=== PATIENT | female | born 1975 | race Caucasian/White ===

== ENCOUNTER 2018-05-04 19:07 | Observation (INO) | payer MEDICAID ==
[2018-05-04 19:08] VITALS: BMI 26.4
[2018-05-04 19:46] LABS: HEMOGLOBIN 12.6 g/dL (12.0-16.0); MEAN CELL VOLUME 80.6 fl (80.0-105.0); MEAN CORPUSCULAR HEMOGLOBIN 26.9 pg (25.0-35.0); MEAN CORPUSCULAR HGB CONC 33.4 g/dl (31.0-37.0); MEAN PLATELET VOLUME 10.1 fl (7.0-11.0); RBC 4.68 10^6/uL (3.5-6.1); RED CELL DISTRIBUTION WIDTH 14.1 % (11.5-14.5); WHITE BLOOD COUNT 8.4 10^3/uL (4.5-11.0)
[2018-05-04 19:55] LABS: ALB/GLOB RATIO 1.3 (1.1-1.8); ALBUMIN 4.4 g/dL (3.0-4.8); ALT/SGPT 38 U/L (7-56); AST/SGOT 38 U/L (14-36); BLOOD UREA NITROGEN 13 mg/dL (7-21); CALCIUM 9.6 mg/dL (8.4-10.5); GFR NON-AFRICAN AMERICAN > 60
[2018-05-04 20:01] LABS: INR 0.94; PROTHROMBIN TIME 10.7 SECONDS (9.4-12.5)
[2018-05-04 20:07] LABS: TROPONIN I < 0.01 ng/mL
--- NOTE | 2018-05-04 20:46 | ED PDOC ---
Arrival/HPI - General Chief Complaint: Palpitations Time Seen by Provider: 05/04/18 19:26 Historian: Patient - History of Present Illness Narrative History of Present Illness (Text): 05/04/18 19:25 Indy Bennett is a 42 year old female, whose past medical history includes rheumatism and Mediterranean fever, who presents to the Emergency department complaining of intermittent left-sided chest discomfort radiating to left shoul felice and arm for the past couple of days. Patient has a history of tobacco abuse and family history of cardiac disease. Patient also complaining of occasional palpitations. Patient denies any fever, chills, cough, shortness of breath, nausea, vomiting, headache, dizziness, or any other complaints. Symptom Onset: Gradual Symptom Course: Unchanged Activities at Onset: Light Context: Home Past Medical History - Provider Review Nursing Documentation Reviewed: Yes - Tetanus Immunization Tetanus Immunization: Unknown - Past Medical History Past Medical History: No Previous - Cardiac Hx Cardiac Disorders: No - Pulmonary Hx Respiratory Disorders: No - Neurological Hx Neurological Disorder: No - HEENT Hx HEENT Disorder: Yes Other/Comment: DNS SINUS CONGESTION, CHRONIC SINUS INFECTION - Renal Hx Renal Disorder: Yes - Endocrine/Metabolic Hx Endocrine Disorders: No - Hematological/Oncological Hx Blood Disorders: Yes Other/Comment: MEDITERRANEAN FEVER TAKES COLCHICINE - Integumentary Hx Dermatological Disorder: No - Musculoskeletal/Rheumatological Hx Musculoskeletal Disorders: No Hx Falls: No - Gastrointestinal Hx Diverticulitis: Yes (02/12/16) - Genitourinary/Gynecological Hx Genitourinary Disorders: Yes Hx Urinary Tract Infection: Yes (CHRONIC) - Psychiatric Hx Anxiety: Yes Hx Substance Use: No - Surgical History Hx Appendectomy: Yes Hx Cholecystectomy: Yes Hx Tonsillectomy: Yes - Anesthesia Hx Anesthesia: Yes Hx Anesthesia Reactions: No Hx Malignant Hyperthermia: No - Suicidal Assessment Feels Threatened In Home Enviroment: No Family/Social History - Physician Review Nursing Documentation Reviewed: Yes Family/Social History: Unknown Family HX Smoking Status: Never Smoked Hx Alcohol Use: No Hx Substance Use: No Hx Substance Use Treatment: No Allergies/Home Meds Allergies/Adverse Reactions: Allergies cortisone Allergy (Verified 05/04/18 19:14) SWELLING Home Medications: Home Meds Medication Instructions Recorded Confirmed Colchicine [Colcrys] 0.6 mg PO DAILY 11/09/15 05/04/18 Review of Systems - Physician Review All systems were reviewed & negative as marked: Yes - Review of Systems Constitutional: Normal. absent: Fevers Eyes: Normal ENT: Normal Respiratory: Normal. absent: SOB, Cough Cardiovascular: Chest Pain, Palpitations Gastrointestinal: Normal. absent: Abdominal Pain, Diarrhea, Nausea, Vomiting Genitourinary Female: Normal. absent: Dysuria, Frequency, Hematuria, Urine Output Changes Musculoskeletal: Normal. absent: Back Pain, Neck Pain Skin: Normal. absent: Rash Neurological: Normal. absent: Headache, Dizziness Endocrine: Normal Hemo/Lymphatic: Normal Psychiatric: Normal Physical Exam Vital Signs Reviewed: Yes Vital Signs Temp Pulse Resp BP Pulse Ox 05/04/18 19:22 98.7 F 109 H 18 120/77 98 Temperature: Afebrile Blood Pressure: Normal Pulse: Regular Respiratory Rate: Normal Appearance: Positive for: Well-Appearing, Non-Toxic, Comfortable Pain Distress: None Mental Status: Positive for: Alert and Oriented X 3 - Systems Exam Head: Present: Atraumatic, Normocephalic Pupils: Present: PERRL Extroacular Muscles: Present: EOMI Conjunctiva: Present: Normal Mouth: Present: Moist Mucous Membranes Neck: Present: Normal Range of Motion Respiratory/Chest: Present: Clear to Auscultation, Good Air Exchange. No: Respiratory Distress, Accessory Muscle Use Cardiovascular: Present: Regular Rate and Rhythm, Normal S1, S2. No: Murmurs Abdomen: No: Tenderness, Distention, Peritoneal Signs Back: Present: Normal Inspection Upper Extremity: Present: Normal Inspection. No: Cyanosis, Edema Lower Extremity: Present: Normal Inspection. No: Edema Neurological: Present: GCS=15, CN II-XII Intact, Speech Normal Skin: Present: Warm, Dry, Normal Color. No: Rashes Psychiatric: Present: Alert, Oriented x 3, Normal Insight, Normal Concentration Medical Decision Making ED Course and Treatment: 05/04/18 19:25 Impression: 42 year old female complaining of left-sided chest discomfort radiating to left arm and occasional palpitations. Plan: -- EKG -- Chest X-ray -- Labs, cardiac enzymes, D-dimer -- Reassess and disposition Prior Visits: Notes and results from previous visits were reviewed. Progress Notes: Reviewed EKG, sinus tachycardia at [address]-segment elevations or depressions, no T-wave inversions, normal intervals. 05/04/18 21:05 Chest X-ray reviewed, shows no acute processes. 05/04/18 23:46 Case discussed with claim review medical director weapons engineer, who is aware and agrees with plan. Case discussed with Dr. Walton, who is aware and agrees with plan. Accepts pt in to hospitalist service. Pt will go to remote telemetry observation for chest pain. - Lab Interpretations Lab Results: PT 10.7 SECONDS (9.4-12.5) 05/04/18 19:40 INR 0.94 05/04/18 19:40 APTT 27.0 Seconds (25.1-36.5) 05/04/18 19:40 Troponin I < 0.01 ng/mL 05/04/18 19:40 Total Bilirubin 0.3 mg/dL (0.2-1.3) 05/04/18 19:40 AST 38 U/L (14-36) H 05/04/18 19:40 ALT 38 U/L (7-56) 05/04/18 19:40 Alkaline Phosphatase 60 U/L (38-126) 05/04/18 19:40 Total Protein 7.8 g/dL (5.8-8.3) 05/04/18 19:40 Albumin 4.4 g/dL (3.0-4.8) 05/04/18 19:40 Globulin 3.4 gm/dL 05/04/18 19:40 Albumin/Globulin Ratio 1.3 (1.1-1.8) 05/04/18 19:40 I have reviewed the lab results: Yes - RAD Interpretation Radiology Orders: 05/04/18 19:28 CHEST PORTABLE [RAD] Stat Audio Tape Librarian: ED Physician - EKG Interpretation Interpreted by ED Physician: Yes Type: 12 lead EKG - Scribe Statement The provider has reviewed the documentation as recorded by the Blu Scott Provider Scribe Attestation: All medical record entries made by the Scribe were at my direction and personally dictated by me. I have reviewed the chart and agree that the record accurately reflects my personal performance of the history, physical exam, medical decision making, and the department course for this patient. I have also personally directed, reviewed, and agree with the discharge instructions and disposition. Disposition/Present on Arrival - Present on Arrival Any Indicators Present on Arrival: No History of DVT/PE: No History of Uncontrolled Diabetes: No Urinary Catheter: No History of Decub. Ulcer: No History Surgical Site Infection Following: None - Disposition Have Diagnosis and Disposition been Completed?: Yes Diagnosis: Chest pain Disposition: HOSPITALIZED Disposition Time: 22:15 Patient Problems: Current Active Problems Problem Status Onset Chest pain Acute Condition: STABLE
[2018-05-04] MEDS ORDERED: Morphine 2 mg/ml ISec IVP STA (21:57)
[2018-05-05 00:24] VITALS: RESP 20
[2018-05-05] MEDS ORDERED: Influenza Vaccine 60 mcg/0.5 mL SYR (4YR UP) IM ONE (00:24)
[2018-05-05] MEDS ORDERED: Pneumococcal 23-Valent Vaccine IM ONE (00:24)
--- NOTE | 2018-05-05 01:25 | CP.PCM.HP ---
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 Patient reports she has stubsternal chest pain which she describes as pressure like in nature; on going for the past week occurring at rest and at exertion. She reports pain radiates into her L arm and L jaw; and denies any prior episodes in the past. Patient states her episodes begin w/ onset of palpitations and racing heart and are subsequently followed by this pressure like chest pain. Patient also reports that during exertion she has mild episodes of light headedness which relieve once the patient is at rest. She also reports some shortness of breath associated w/ episodes of chest pain as well. Upon ROS: Denies Abd pain, N/V/D/C, Urinary complaints, fever, chills, numbness/tingling, focal weakness. Remainder of 12 system ROS is otherwise negative. PMD: Alessia PMH: Mediterranean Fever Home Rx: Colchicine 0.6 BID; SubQ biologic (Q21 days) Pharmacy: [facility] PSH: Carin, Appy, Csection, Tonsillectomy, unknown ear surgery Fam: Mother - Elevated Thyroid; Father - DM, HTN, CAD Social: Denies EtOH, Smokes Hookah on/off, Denies Illicit Drugs Present on Admission - Present on Admission Any Indicators Present on Admission: No Past Patient History - Tetanus Immunizations Tetanus Immunization: Unknown - Past Medical History & Family History Past Medical History?: Yes - Past Social History Smoking Status: Never Smoked - CARDIAC Hx Cardiac Disorders: No - PULMONARY Hx Respiratory Disorders: No - NEUROLOGICAL Hx Neurological Disorder: No - HEENT Hx HEENT Problems: Yes Other/Comment: DNS SINUS CONGESTION, CHRONIC SINUS INFECTION - RENAL Hx Chronic Kidney Disease: Yes - ENDOCRINE/METABOLIC Hx Endocrine Disorders: No - HEMATOLOGICAL/ONCOLOGICAL Hx Blood Disorders: Yes Other/Comment: MEDITERRANEAN FEVER TAKES COLCHICINE - INTEGUMENTARY Hx Dermatological Problems: No - MUSCULOSKELETAL/RHEUMATOLOGICAL Hx Musculoskeletal Disorders: No Hx Falls: No - GASTROINTESTINAL Hx Diverticulitis: Yes (02/12/16) - GENITOURINARY/GYNECOLOGICAL Hx Genitourinary Disorders: Yes Hx Urinary Tract Infection: Yes (CHRONIC) - PSYCHIATRIC Hx Anxiety: Yes Hx Substance Use: No - SURGICAL HISTORY Hx Appendectomy: Yes Hx Cholecystectomy: Yes Hx Tonsillectomy: Yes - ANESTHESIA Hx Anesthesia: Yes Hx Anesthesia Reactions: No Hx Malignant Hyperthermia: No Meds Allergies/Adverse Reactions: Allergies Allergy/AdvReac Type Severity Reaction Status Date / Time cortisone Allergy SWELLING Verified 05/04/18 19:14 Physical Exam - Constitutional Appears: Well, Non-toxic, No Acute Distress - Head Exam Head Exam: ATRAUMATIC, NORMOCEPHALIC - Eye Exam Eye Exam: EOMI, Normal appearance, PERRL. absent: Scleral icterus - ENT Exam ENT Exam: Mucous Membranes Moist - Respiratory Exam Respiratory Exam: Chest Wall Tenderness (Mild reproducibly at left lower sternal border ), Clear to Auscultation Bilateral, NORMAL BREATHING PATTERN - Cardiovascular Exam Cardiovascular Exam: REGULAR RHYTHM, RRR, +S1, +S2. absent: Systolic Murmur - GI/Abdominal Exam GI & Abdominal Exam: Normal Bowel Sounds, Soft. absent: Tenderness - Extremities Exam Extremities exam: Positive for: pedal pulses present. Negative for: pedal edema - Neurological Exam Neurological exam: Alert, CN II-XII Intact - Psychiatric Exam Psychiatric exam: Normal Affect, Normal Mood - Skin Skin Exam: Dry, Intact, Normal Color, Warm Results - Vital Signs Recent Vital Signs: Last Vital Signs Temp 98.7 F 05/04/18 19:22 Pulse 74 05/04/18 23:12 Resp 20 05/04/18 23:12 BP 121/82 05/04/18 22:59 Pulse Ox 98 05/04/18 22:59 - Labs Result Diagrams: 05/05/18 03:35 05/05/18 03:35 Labs: Laboratory Results - last 24 hr 05/04/18 05/04/18 05/04/18 19:40 19:40 19:40 WBC 8.4 RBC 4.68 Hgb 12.6 Hct 37.7 MCV 80.6 MCH 26.9 MCHC 33.4 RDW 14.1 Plt Count 225 MPV 10.1 PT 10.7 INR 0.94 APTT 27.0 D-Dimer, Quantitative Sodium 139 Potassium 4.0 Chloride 102 Carbon Dioxide 28 Anion Gap 14 BUN 13 Creatinine 0.5 L Est GFR ( Amer) > 60 Est GFR (Non-Af Amer) > 60 Random Glucose 103 Calcium 9.6 Total Bilirubin 0.3 AST 38 H ALT 38 Alkaline Phosphatase 60 Lactate Dehydrogenase 454 Total Creatine Kinase 49 Troponin I < 0.01 Total Protein 7.8 Albumin 4.4 Globulin 3.4 Albumin/Globulin Ratio 1.3 05/04/18 19:40 WBC RBC Hgb Hct MCV MCH MCHC RDW Plt Count MPV PT INR APTT D-Dimer, Quantitative 339 H Sodium Potassium Chloride Carbon Dioxide Anion Gap BUN Creatinine Est GFR ( Amer) Est GFR (Non-Af Amer) Random Glucose Calcium Total Bilirubin AST ALT Alkaline Phosphatase Lactate Dehydrogenase Total Creatine Kinase Troponin I Total Protein Albumin Globulin Albumin/Globulin Ratio Assessment & Plan - Assessment and Plan (Free Text) Assessment: 42F w/ a PMH of Mediterranean Fever, [place] [facility] [place] w/ c/o Palpitations and Chest Pain. PLAN: Chest Pain ; Palpitations - ACS R/O ASA Loaded in ED EKG showed no ischemic changes First two trops negative Third Troponin pending C/w ASA 81 QD Lipid Panel Pending A1C pending TSH mildly elevated D-Dimer mildly elevated (340); 05/04 - CTA PE negative for PE ; Mild pulmonary venous congestion (poss mild CHF?); Bilateral hilar adenopathy - poss reactive Follow up ECHO Cardiology consulted, appreciate reccs Hx Familial Mediterranean Fever C/w Home Colocrys 0.6 BID PPX Lovenox Pepcid 20 BID Patient was seen, examined, and discussed w/ attending Dr. 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
[2018-05-05 04:04] LABS: ALB/GLOB RATIO 1.4 (1.1-1.8); ALBUMIN 4.2 g/dL (3.0-4.8); ALT/SGPT 41 U/L (7-56); AST/SGOT 34 U/L (14-36); BLOOD UREA NITROGEN 15 mg/dL (7-21); CALCIUM 9.2 mg/dL (8.4-10.5); GFR NON-AFRICAN AMERICAN > 60; HDL CHOLESTEROL 44 mg/dL (29-60)
[2018-05-05 04:14] LABS: LDL CHOLESTEROL 123 mg/dL (0-129)
[2018-05-05 04:15] LABS: TROPONIN I < 0.01 ng/mL
[2018-05-05 04:34] LABS: BASO # 0.02 K/mm3 (0.0-2.0); BASO % 0.2 % (0.0-3.0); EOS # 0.1 (0.0-0.7); EOS % 1.6 % (1.5-5.0); GRAN # 5.85 (1.4-6.5); GRAN % 70.3 % (50.0-68.0); HEMOGLOBIN 12.1 g/dL (12.0-16.0); LYMPH # 1.8 (1.2-3.4); LYMPH % 21.8 % (22.0-35.0); MEAN CELL VOLUME 80.7 fl (80.0-105.0); MEAN CORPUSCULAR HEMOGLOBIN 26.5 pg (25.0-35.0); MEAN CORPUSCULAR HGB CONC 32.8 g/dl (31.0-37.0); MEAN PLATELET VOLUME 10.2 fl (7.0-11.0); MONO # 0.5 (0.1-0.6); MONO % 6.1 % (1.0-6.0); RBC 4.57 10^6/uL (3.5-6.1); RED CELL DISTRIBUTION WIDTH 14.1 % (11.5-14.5); WHITE BLOOD COUNT 8.3 10^3/uL (4.5-11.0)
--- NOTE | 2018-05-05 07:35 | RAD ---
Date of service: 05/04/2018 HISTORY: palpitations COMPARISON: Portable chest 11/09/2015. FINDINGS: LUNGS: No active pulmonary disease. PLEURA: No significant pleural effusion identified, no pneumothorax apparent. CARDIOVASCULAR: No aortic atherosclerotic calcification present. Normal cardiac size. No pulmonary vascular congestion. OSSEOUS STRUCTURES: No significant abnormalities. VISUALIZED UPPER ABDOMEN: Normal. OTHER FINDINGS: None. IMPRESSION: No interval acute cardiopulmonary disease appreciated.
--- NOTE | 2018-05-05 08:59 | CT ---
Date of service: 05/04/2018 PROCEDURE: CT Chest with contrast (Pulmonary Angiogram) HISTORY: sob COMPARISON: Contrast enhanced chest CT 10/01/2015. TECHNIQUE: Axial computed tomography images were obtained of the chest in the pulmonary arterial phase of enhancement. Coronal and sagittal reformatted images were created and reviewed. Intravenous contrast dose: Omnipaque 350, 149 cc Radiation dose: Total exam DLP = 495.52 mGy-cm. This CT exam was performed using one or more of the following dose reduction techniques: Automated exposure control, adjustment of the mA and/or kV according to patient size, and/or use of iterative reconstruction technique. FINDINGS: PULMONARY ARTERIES: Unremarkable. No pulmonary embolism. AORTA: No acute findings. No thoracic aortic aneurysm. No aortic atherosclerotic calcification or mural plaque present. LUNGS: Unremarkable. No nodule, mass or pulmonary consolidation. PLEURAL SPACES: Unremarkable. No effusion or pneumothorax. HEART: Unremarkable. No cardiomegaly. No significant pericardial effusion. LYMPH NODES: No lymphadenopathy. BONES, CHEST WALL: Unremarkable. No fracture or destructive lesion OTHER FINDINGS: Tiny cyst midpole right kidney incidentally noted. IMPRESSION: Unremarkable CT pulmonary angiogram. No pulmonary embolus. No infiltrate, pleural effusion, pneumothorax or significant lymphadenopathy. No discrete pulmonary mass identified. No significant interval change. Preliminary report provided by Apryl, 05/04/1910 23 p.m..
[2018-05-05] MEDS: Enoxaparin 40 mg Syringe SC SCH (09:47)
--- NOTE | 2018-05-05 14:10 | US ---
HISTORY: Leg pain and swelling. Evaluate for DVT PHYSICIAN(S): Reymundo Hdz MD. TECHNIQUE: Duplex sonography and color-flow Doppler with graded compression were used to evaluate the deep venous systems of both lower extremities. FINDINGS: The visualized deep venous systems of both lower extremities are sonographically normal and compressible. Normal wave forms and augmentation are seen. There is no sonographic evidence for deep venous thrombosis in the visualized segments of both lower extremities. IMPRESSION: No sonographic evidence for deep venous thrombosis in the visualized segments of both lower extremities.
--- NOTE | 2018-05-05 14:45 | CARD ---
APPROVED REPORT Date of service: 05/05/2018 EXAM: Two-dimensional and M-mode echocardiogram with Doppler and color Doppler. INDICATION Chest Pain Palpitations 2D DIMENSIONS Left Atrium (2D)3.2 (1.6-4.0cm)IVSd1.0 (0.7-1.1cm) LVDd3.7 (3.9-5.9cm)PWd1.0 (0.7-1.1cm) LVDs2.6 (2.5-4.0cm)FS (%) 30.5 % LVEF (%)58.9 (>50%) M-Mode DIMENSIONS Aortic Root2.00 (2.2-3.7cm)Aortic Cusp Exc.1.40 (1.5-2.0cm) Aortic Valve AoV Peak Imdkrubf589.0cm/Esther Peak GR.7mmHg Mitral Valve E/A ratio0.0 TDI E/Lateral E'0.0E/Medial E'0.0 Tricuspid Valve TR Peak [id number]/sRAP [id number] Peak Gr.14mmHg [id number] LEFT VENTRICLE The left ventricle is normal size. There is normal left ventricular wall thickness. The left ventricular function is normal. The left ventricular ejection fraction is within the normal range. There is normal LV segmental wall motion. Transmitral Doppler flow pattern is abnormal. RIGHT VENTRICLE The right ventricle is normal size. There is normal right ventricular wall thickness. The right ventricular systolic function is normal. ATRIA The left atrium size is normal. The right atrium size is normal. AORTIC VALVE The aortic valve is normal in structure. No aortic regurgitation is present. There is no aortic valvular stenosis. MITRAL VALVE The mitral valve is normal in structure. There is no mitral valve regurgitation noted. There is no mitral valve stenosis. TRICUSPID VALVE The tricuspid valve is normal in structure. There is trace tricuspid regurgitation. PULMONIC VALVE The pulmonary valve is normal in structure. There is trace pulmonic valvular regurgitation. GREAT VESSELS The aortic root is normal in size. PERICARDIAL EFFUSION There is no pericardial effusion. <Conclusion> There is normal left ventricular wall thickness. The left ventricular function is normal. The left ventricular ejection fraction is within the normal range. There is normal LV segmental wall motion.
[2018-05-05 14:59] LABS: FREE T4 0.76 ng/dL (0.78-2.19)
[2018-05-05 15:13] LABS: T3 1.22 ng/mL (0.97-1.69)
--- NOTE | 2018-05-05 18:28 | CON ---
DATE: 05/05/2018HISTORY OF PRESENT ILLNESS: The patient is a 42-year-old [place] female who has a history of rheumatism according to her and Mediterranean fever. She was diagnosed with a DVT some 4 years ago after her last child, required anticoagulation, but no IVC filter was placed. The patient presented because of palpitation. SOCIAL HISTORY: . She has 3 children, the youngest is 4 years old. MEDICATIONS: Colchicine 0.6 mg twice a day, aspirin 81 mg once a day, Lovenox 40 mg subcutaneously once a day, and Pepcid 20 mg p.o. twice a day. REVIEW OF SYSTEMS: No nausea or vomiting. No fever or chills. PHYSICAL EXAMINATION: GENERAL: The patient is a middle-aged female who does not appear to be in any distress. VITAL SIGNS: Blood pressure 122/79, heart rate 92, temperature 98.2, and respirations 20. HEENT: Normocephalic. NECK: No JVD. CHEST: Clear. HEART: S1 and S2 regular. EXTREMITIES: No edema or calf tenderness. LABORATORY DATA: SMA-7 is within normal limits except for creatinine 0.5. sets of troponins are negative. TSH is elevated at 4.97. Lipid profile is within normal limits. D-dimer is 339. EKG revealed sinus tachycardia at a rate of 110. Chest CT angio with PE protocol. Unremarkable CT pulmonary angiogram. No pulmonary embolus, no infiltrate, pleural effusion, pneumothorax or significant lymphadenopathy. No discrete pulmonary mass. Chest x-ray was unremarkable. ASSESSMENT: 1. Palpitation. 2. History of Mediterranean fever. 3. History of rheumatic fever as a child. RECOMMENDATIONS: Continue current aspirin 81 mg once a day and subcutaneous Lovenox 40 mg once a day. Obtain venous Doppler of lower extremities and echocardiogram as well as full thyroid profile. Jose Enrique Oscar MD
--- NOTE | 2018-05-05 20:20 | CARD ---
APPROVED REPORT Date of service: 05/05/2018 EKG Measurement Heart [id number] UT [id number] <Conclusion> Sinus tachycardia Otherwise normal ECG
--- NOTE | 2018-05-05 20:26 | CARD ---
APPROVED REPORT Date of service: 05/05/2018 EKG Measurement Heart [id number] HI [id number] [id number] <Conclusion> Sinus tachycardia Otherwise normal ECG
--- NOTE | 2018-05-05 20:30 | CARD ---
APPROVED REPORT Date of service: 05/04/2018 EKG Measurement Heart [id number] ME 150P50 [id number] <Conclusion> Sinus tachycardia Otherwise normal ECG
[2018-05-06] MEDS ORDERED: Levothyroxine 25 MCG TAB PO SCH (06:00)
[2018-05-06 07:05] LABS: BASO # 0.01 K/mm3 (0.0-2.0); BASO % 0.2 % (0.0-3.0); EOS # 0.1 (0.0-0.7); EOS % 1.8 % (1.5-5.0); GRAN # 3.93 (1.4-6.5); GRAN % 60.3 % (50.0-68.0); HEMOGLOBIN 12.2 g/dL (12.0-16.0); LYMPH # 2.1 (1.2-3.4); LYMPH % 31.6 % (22.0-35.0); MEAN CELL VOLUME 80.9 fl (80.0-105.0); MEAN CORPUSCULAR HEMOGLOBIN 26.8 pg (25.0-35.0); MEAN CORPUSCULAR HGB CONC 33.2 g/dl (31.0-37.0); MEAN PLATELET VOLUME 10.3 fl (7.0-11.0); MONO # 0.4 (0.1-0.6); MONO % 6.1 % (1.0-6.0); RBC 4.55 10^6/uL (3.5-6.1); RED CELL DISTRIBUTION WIDTH 14.2 % (11.5-14.5); WHITE BLOOD COUNT 6.5 10^3/uL (4.5-11.0)
[2018-05-06 07:10] VITALS: BP 112/67; TEMP 97.8; O2SAT 95
[2018-05-06 07:44] LABS: ALB/GLOB RATIO 1.2 (1.1-1.8); ALBUMIN 4.2 g/dL (3.0-4.8); ALT/SGPT 52 U/L (7-56); AST/SGOT 52 U/L (14-36); BLOOD UREA NITROGEN 11 mg/dL (7-21); CALCIUM 9.3 mg/dL (8.4-10.5); GFR NON-AFRICAN AMERICAN > 60
[2018-05-06] MEDS: Enoxaparin 40 mg Syringe SC SCH (09:56)
[2018-05-06 10:49] VITALS: PULSE 83
--- NOTE | 2018-05-06 13:05 | PN ---
DATE: 05/06/2018 SUBJECTIVE: The patient denies any chest pain or shortness of breath. PHYSICAL EXAMINATION: VITAL SIGNS: Blood pressure 112/67, heart rate 88, temperature 97.8, and respirations 20. HEENT: Normocephalic. CHEST: Clear. HEART: S1 and S2 regular. ABDOMEN: Soft. EXTREMITIES: No edema. LABORATORY DATA: Today's hemoglobin and hematocrit, white count and platelet count are within normal limits. SMA-7 is within normal limit except for creatinine 0.5. Venous Doppler of lower extremities, no evidence of DVT. Echocardiographic study was unremarkable study. TSH level is about normal at 4.97 and free T4 is below normal at 0.76. ASSESSMENT: 1. Chest pain. Myocardial infarction is ruled out. 2. Polyserositis/Mediterranean fever. 3. Mild hypothyroidism. RECOMMENDATIONS: The patient will continue aspirin, Synthroid, and colchicine. . Jose Enrique Oscar MD
--- NOTE | 2018-05-06 13:10 | CP.PCM.DIS ---
<Gus Slaughter - Last Filed: 05/07/18 15:05> Provider - Provider Date of Admission: 05/04/18 21:58 Attending physician: Leny Rosales MD Primary care physician: Rogerio Villa MD Consults: 05/05/18 01:27 Cardiology Consult Routine Comment: Consulting Provider: Jose Enrique Oscar Consulting Physician: Jose Enrique Oscar Reason for Consult: Chest Pain ACS r/o Time Spent in preparation of Discharge (in minutes): 35 Hospital Course - Lab Results Lab Results: Most Recent Lab Values WBC 6.5 10^3/uL (4.5-11.0) D 05/06/18 06:30 RBC 4.55 10^6/uL (3.5-6.1) 05/06/18 06:30 Hgb 12.2 g/dL (12.0-16.0) 05/06/18 06:30 Hct 36.8 % (36.0-48.0) 05/06/18 06:30 MCV 80.9 fl (80.0-105.0) 05/06/18 06:30 MCH 26.8 pg (25.0-35.0) 05/06/18 06:30 MCHC 33.2 g/dl (31.0-37.0) 05/06/18 06:30 RDW 14.2 % (11.5-14.5) 05/06/18 06:30 Plt Count 224 10^3/uL (120.0-450.0) 05/06/18 06:30 MPV 10.3 fl (7.0-11.0) 05/06/18 06:30 Gran % 60.3 % (50.0-68.0) 05/06/18 06:30 Lymph % (Auto) 31.6 % (22.0-35.0) 05/06/18 06:30 [place] % (Auto) 6.1 % (1.0-6.0) H 05/06/18 06:30 Eos % (Auto) 1.8 % (1.5-5.0) 05/06/18 06:30 Baso % (Auto) 0.2 % (0.0-3.0) 05/06/18 06:30 Gran # 3.93 (1.4-6.5) 05/06/18 06:30 Lymph # (Auto) 2.1 (1.2-3.4) 05/06/18 06:30 [place] # (Auto) 0.4 (0.1-0.6) 05/06/18 06:30 Eos # (Auto) 0.1 (0.0-0.7) 05/06/18 06:30 Baso # (Auto) 0.01 K/mm3 (0.0-2.0) 05/06/18 06:30 ESR 36 mm/hr (0.0-20.0) H 05/06/18 10:35 PT 10.7 SECONDS (9.4-12.5) 05/04/18 19:40 INR 0.94 05/04/18 19:40 APTT 27.0 Seconds (25.1-36.5) 05/04/18 19:40 D-Dimer, Quantitative 339 ng/mlDDU (0-243) H 05/04/18 19:40 Sodium 138 mmol/L (132-148) 05/06/18 06:30 Potassium 3.6 mmol/L (3.6-5.0) 05/06/18 06:30 Chloride 101 mmol/L (98-107) 05/06/18 06:30 Carbon Dioxide 29 mmol/L (21-33) 05/06/18 06:30 Anion Gap 11 (10-20) 05/06/18 06:30 BUN 11 mg/dL (7-21) 05/06/18 06:30 Creatinine 0.5 mg/dl (0.7-1.2) L 05/06/18 06:30 Est GFR ( Amer) > 60 05/06/18 06:30 Est GFR (Non-Af Amer) > 60 05/06/18 06:30 Random Glucose 106 mg/dL (70-110) 05/06/18 06:30 Hemoglobin A1c 5.4 % (4.2-6.5) 05/05/18 03:35 Calcium 9.3 mg/dL (8.4-10.5) 05/06/18 06:30 Phosphorus 3.9 mg/dL (2.5-4.5) 05/05/18 03:35 Magnesium 2.0 mg/dL (1.7-2.2) 05/05/18 03:35 Total Bilirubin 0.4 mg/dL (0.2-1.3) 05/06/18 06:30 AST 52 U/L (14-36) H D 05/06/18 06:30 ALT 52 U/L (7-56) 05/06/18 06:30 Alkaline Phosphatase 67 U/L (38-126) 05/06/18 06:30 Lactate Dehydrogenase 454 U/L (333-699) 05/04/18 19:40 Total Creatine Kinase 49 U/L (35-230) 05/04/18 19:40 Troponin I < 0.01 ng/mL 05/05/18 11:50 NT-Pro-B Natriuret Pep 30.9 pg/mL (0-450) 05/05/18 07:10 Total Protein 7.7 g/dL (5.8-8.3) 05/06/18 06:30 Albumin 4.2 g/dL (3.0-4.8) 05/06/18 06:30 Globulin 3.5 gm/dL 05/06/18 06:30 Albumin/Globulin Ratio 1.2 (1.1-1.8) 05/06/18 06:30 Triglycerides 105 mg/dL (35-160) 05/05/18 03:35 Cholesterol 186 mg/dL (130-200) 05/05/18 03:35 LDL Cholesterol Direct 123 mg/dL (0-129) 05/05/18 03:35 HDL Cholesterol 44 mg/dL (29-60) 05/05/18 03:35 Free T4 0.76 ng/dL (0.78-2.19) L 05/05/18 14:25 Total T3 1.22 ng/mL (0.97-1.69) 05/05/18 14:25 TSH 3rd Generation 4.97 mIU/mL (0.46-4.68) H 05/05/18 03:35 - Hospital Course Hospital Course: Upon admission, 42 year old female with PMH of Mediterranean Fever, presented [place] [facility] [place] w/ c/o Palpitations and Chest Pain. Patient reports she has stubsternal chest pain which she describes as pressure like in nature; on going for the past week occurring at rest and at exertion. She reports pain radiates into her L arm and L jaw; and denies any prior epi sodes in the past. Patient states her episodes begin w/ onset of palpitations and racing heart and are subsequently followed by this pressure like chest pain. Patient also reports that during exertion she has mild episodes of light headedness which relieve once the patient is at rest. She also reports some shortness of breath associated w/ episodes of chest pain as well. During hospital course, EKG was unremarkable and did not show any ST changes and troponins x3 were negative. D-dimer was mildly elevated and CTA PE negative for PE ; Mild pulmonary venous congestion poss mild CHF. Subsequent BNP was unremarkable. TSH was noted to be elevated with low free T4 and patient started on synthroid and instructed to follow up thyroid levels in 6-8 weeks with primary doctor and patient agreed. Lipid panel was WNL. LE doppler was unremarkable for DVT. Echo was unremarkable with EF of 59%. Patient agreed with discharge and all questions were answered. Patient agreed to follow up with primary doctor upon discharge. Discharge Exam - Additional Findings Additional findings: - Constitutional Appears: Well, Non-toxic, No Acute Distress - Head Exam Head Exam: ATRAUMATIC, NORMOCEPHALIC - Eye Exam Eye Exam: EOMI, Normal appearance, PERRL. absent: Scleral icterus - ENT Exam ENT Exam: Mucous Membranes Moist - Respiratory Exam Respiratory Exam: Chest Wall Tenderness (Mild reproducibly at left lower sternal border ), Clear to Auscultation Bilateral, NORMAL BREATHING PATTERN - Cardiovascular Exam Cardiovascular Exam: REGULAR RHYTHM, RRR, +S1, +S2. absent: Systolic Murmur - GI/Abdominal Exam GI & Abdominal Exam: Normal Bowel Sounds, Soft. absent: Tenderness - Extremities Exam Extremities exam: Positive for: pedal pulses present. Negative for: pedal edema - Neurological Exam Neurological exam: Alert, CN II-XII Intact - Psychiatric Exam Psychiatric exam: Normal Affect, Normal Mood - Skin Skin Exam: Dry, Intact, Normal Color, Warm Discharge Plan - Discharge Medications Prescriptions: RX: Aspirin [Ecotrin] 81 mg PO DAILY #14 tabec RX: Colchicine [Colcrys] 0.6 mg PO BID #28 tablet RX: Levothyroxine [Synthroid] 25 mcg PO 0600 #14 tab - Follow Up Plan Condition: STABLE Disposition: HOME/ ROUTINE Instructions: Hypothyroidism (Underactive Thyroid), Chest Pain (DC) Additional Instructions: Please follow up with your primary doctor, Dr. Villa within 3-5 days of discharge. You will need to check your TSH thyroid level in 6-8 weeks by your primary doctor. You have been started on a new thyroid medication called synthroid once daily since you have low thyroid levels. Please continue taking your home medications. Your prescriptions have been called into your pharmacy. Please return to the ED for any new or worsening symptoms. Referrals: Rogerio Villa MD [Primary Care Provider] - <Leny Rosales - Last Filed: 05/07/18 15:35> Provider - Provider Date of Admission: 05/04/18 21:58 Attending physician: Leny Rosales MD Primary care physician: Rogerio Villa MD Consults: 05/05/18 01:27 Cardiology Consult Routine Comment: Consulting Provider: Jose Enrique Oscar Consulting Physician: Jose Enrique Oscar Reason for Consult: Chest Pain ACS r/o Hospital Course - Lab Results Lab Results: Most Recent Lab Values WBC 6.5 10^3/uL (4.5-11.0) D 05/06/18 06:30 RBC 4.55 10^6/uL (3.5-6.1) 05/06/18 06:30 Hgb 12.2 g/dL (12.0-16.0) 05/06/18 06:30 Hct 36.8 % (36.0-48.0) 05/06/18 06:30 MCV 80.9 fl (80.0-105.0) 05/06/18 06:30 MCH 26.8 pg (25.0-35.0) 05/06/18 06:30 MCHC 33.2 g/dl (31.0-37.0) 05/06/18 06:30 RDW 14.2 % (11.5-14.5) 05/06/18 06:30 Plt Count 224 10^3/uL (120.0-450.0) 05/06/18 06:30 MPV 10.3 fl (7.0-11.0) 05/06/18 06:30 Gran % 60.3 % (50.0-68.0) 05/06/18 06:30 Lymph % (Auto) 31.6 % (22.0-35.0) 05/06/18 06:30 [place] % (Auto) 6.1 % (1.0-6.0) H 05/06/18 06:30 Eos % (Auto) 1.8 % (1.5-5.0) 05/06/18 06:30 Baso % (Auto) 0.2 % (0.0-3.0) 05/06/18 06:30 Gran # 3.93 (1.4-6.5) 05/06/18 06:30 Lymph # (Auto) 2.1 (1.2-3.4) 05/06/18 06:30 [place] # (Auto) 0.4 (0.1-0.6) 05/06/18 06:30 Eos # (Auto) 0.1 (0.0-0.7) 05/06/18 06:30 Baso # (Auto) 0.01 K/mm3 (0.0-2.0) 05/06/18 06:30 ESR 36 mm/hr (0.0-20.0) H 05/06/18 10:35 PT 10.7 SECONDS (9.4-12.5) 05/04/18 19:40 INR 0.94 05/04/18 19:40 APTT 27.0 Seconds (25.1-36.5) 05/04/18 19:40 D-Dimer, Quantitative 339 ng/mlDDU (0-243) H 05/04/18 19:40 Sodium 138 mmol/L (132-148) 05/06/18 06:30 Potassium 3.6 mmol/L (3.6-5.0) 05/06/18 06:30 Chloride 101 mmol/L (98-107) 05/06/18 06:30 Carbon Dioxide 29 mmol/L (21-33) 05/06/18 06:30 Anion Gap 11 (10-20) 05/06/18 06:30 BUN 11 mg/dL (7-21) 05/06/18 06:30 Creatinine 0.5 mg/dl (0.7-1.2) L 05/06/18 06:30 Est GFR ( Amer) > 60 05/06/18 06:30 Est GFR (Non-Af Amer) > 60 05/06/18 06:30 Random Glucose 106 mg/dL (70-110) 05/06/18 06:30 Hemoglobin A1c 5.4 % (4.2-6.5) 05/05/18 03:35 Calcium 9.3 mg/dL (8.4-10.5) 05/06/18 06:30 Phosphorus 3.9 mg/dL (2.5-4.5) 05/05/18 03:35 Magnesium 2.0 mg/dL (1.7-2.2) 05/05/18 03:35 Total Bilirubin 0.4 mg/dL (0.2-1.3) 05/06/18 06:30 AST 52 U/L (14-36) H D 05/06/18 06:30 ALT 52 U/L (7-56) 05/06/18 06:30 Alkaline Phosphatase 67 U/L (38-126) 05/06/18 06:30 Lactate Dehydrogenase 454 U/L (333-699) 05/04/18 19:40 Total Creatine Kinase 49 U/L (35-230) 05/04/18 19:40 Troponin I < 0.01 ng/mL 05/05/18 11:50 C-Reactive Protein 178.50 mg/L (0.0-9.9) H 05/06/18 10:35 NT-Pro-B Natriuret Pep 30.9 pg/mL (0-450) 05/05/18 07:10 Total Protein 7.7 g/dL (5.8-8.3) 05/06/18 06:30 Albumin 4.2 g/dL (3.0-4.8) 05/06/18 06:30 Globulin 3.5 gm/dL 05/06/18 06:30 Albumin/Globulin Ratio 1.2 (1.1-1.8) 05/06/18 06:30 Triglycerides 105 mg/dL (35-160) 05/05/18 03:35 Cholesterol 186 mg/dL (130-200) 05/05/18 03:35 LDL Cholesterol Direct 123 mg/dL (0-129) 05/05/18 03:35 HDL Cholesterol 44 mg/dL (29-60) 05/05/18 03:35 Free T4 0.76 ng/dL (0.78-2.19) L 05/05/18 14:25 Total T3 1.22 ng/mL (0.97-1.69) 05/05/18 14:25 TSH 3rd Generation 4.97 mIU/mL (0.46-4.68) H 05/05/18 03:35 Attending/Attestation - Attestation I have personally seen and examined this patient.: Yes I have fully participated in the care of the patient.: Yes I have reviewed all pertinent clinical information, including history, physical exam and plan: Yes Notes (Text): 05/07/18 15:31 Medical record note made by the resident after discussion with my direction and input after the patient was personally seen and examined by me. I have reviewed the chart and agree that the record accurately reflects by personal performance of the history, physical exam, data review, and medical decision-making, in the course for the patient. I have also personally directed the plan of care. 42 year old female with PMH of Mediterranean Fever? [place] [facility] [place] w/ c/o Palpitations and Chest Pain. she has stubsternal chest tenderness. EKG was unremarkable and did not show any ST changes Troponins x3 were negative. D-dimer was mildly elevated and CTA was negative for PE ; . Subsequent BNP was unremarkable. LE doppler was unremarkable for DVT. Echo was unremarkable with EF of 59%. TSH was noted to be elevated with low free T4 and patient started on synthroid and instructed to follow up thyroid levels in 6-8 weeks with primary doctor and patient agreed. Patient was evaluated by cardiology, no further inpatient work up was recommended. Patient will be discharged home and will have out patient stress test. Management plan was discussed in detail with patient. Education was provided. 05/07/18 15:31
== END 2018-05-06 13:24 | disposition home or self-care (01) ==
LOC: ED 19:07 → ERH 21:58 → 3RNO 23:03
PROVIDERS: ADMIT Internal Medicine; ATTEND Internal Medicine
DX: R07.89 Other chest pain (principal); R00.2 Palpitations; M79.0 Rheumatism, unspecified; E03.9 Hypothyroidism, unspecified; Z87.891 Personal history of nicotine dependence; Z82.49 Family history of ischemic heart disease and other diseases of the circulatory system; Z83.3 Family history of diabetes mellitus
CPT/HCPCS: 36415; 71045; 71275; 80053; 80061; 81025; 82550; 83036; 83615; 83735; 83880; 84100; 84439; 84443; 84480; 84484; 85025; 85027; 85378; 85610; 85651; 85730; 86140; 93005; 93306; 93970; 96372; 96374; 96375; 96376; 99285; G0378; J1650; J2270; J2405; Q9967

== ENCOUNTER 2018-07-22 09:41 | Outpatient (CLI) | payer MEDICAID | END 2018-07-22 09:42 | disposition home or self-care (01) | LOC: LAB 09:41 ==